=== PATIENT | female | born 1980 | race Caucasian/White ===

== ENCOUNTER 2017-04-09 19:09 | Emergency (ER) | payer OTHER ==
[~2017-04-09] VITALS: Ht 172.7 cm; Wt 79.5 kg
[~2017-04-09 19:09] MED LIST: ADDERALL XR 2525 MG PO; ADDERALL XR 3030 MG PO; ALBUTEROL SULF8.5 GM IH; AMBIEN5 MG PO; ATROVENT H200 INHALA IH; BEDSIDECOMMODE; BENADRYL50 MG PO; BENTYL10 MG PO; CIPRO500 MG PO; FLEXERIL10 MG PO; FLOVENT 22120 INHALA IH; KEFLEX500 MG PO; LEVOFLOXACIN750 MG PO; MOTRIN800 MG PO; NAPROSYN500 MG; NAPROSYN500 MG PO; NAPROXEN500 MG PO; NICOTINE PATCH1 EAC1 TD; OXCARBAZEPINE300 MG PO; OXYCODONE HCL5 MG PO; OXYCODONE-APAP1 EACH PO; OXYCONTIN15 MG PO; PERCOCET 5/31 TABLET PO; PREDNISONE20 MG PO; PROAIR HFA8.5 GM IH; PYRIDIUM100 MG PO; PYRIDIUM200 MG PO; REQUIP0.5 MG PO; SINGULAIR10 MG PO; TRAMADOL HCL50 MG; TRAMADOL HCL50 MG PO; TRAZODONE HCL50 MG PO; VALIUM5 MG PO; VENTOLIN HFA18 GM; WHEELCHAIR1 EACH MC; ZOFRAN ODT4 MG PO; ZOLPIDEM TARTRAT5 MG PO
[2017-04-09 20:23] LABS: HEMATOCRIT 39.1 % (36.0-46.0); MCH 29.3 PG (29.0-34.0); MCHC 32.7 G/DL (30.0-36.0); MCV 89.5 FL (83-99); MEAN PLAT.VOLUME 10.6 uM^3 (9.5-12.4); PLATELET COUNT 300 K/uL (156-360); RBC DIS.WIDTH-SD 42.5 % (39-53); RED BLOOD COUNT 4.37 M/uL (3.80-5.20); WHITE BLOOD COUNT 6.8 K/uL (4.1-10.2)
[2017-04-09 20:38] LABS: CHLORIDE 106 mEq/L (99-109); POTASSIUM 3.4 mEq/L (3.7-5.4)
[2017-04-09 20:39] LABS: SODIUM 142 mEq/L (136-147)
[2017-04-09 20:41] LABS: GLUCOSE 90 mg/dL (70-99)
[2017-04-09 20:42] LABS: ANION GAP 8 MEQ/L (2-14)
[2017-04-09 20:43] LABS: ADD MIUA? NO; BILIRUBIN NEGATIVE; BLOOD NEGATIVE; COLOR STRAW ((YELLOW)); GLUCOSE (STRIP) NEGATIVE; KETONES NEGATIVE; LEUKOCYTES NEGATIVE; NITRITE NEGATIVE; PROTEIN (STRIP) NEGATIVE; SPECIFIC GRAVITY 1.004 (1.000-1.030); UCUL ADDED? NO; UROBILINOGEN 0.2 MG/DL (0.2-1.0)
[2017-04-09 20:43] LABS: TOTAL BILIRUBIN 0.6 mg/dL (0.0-1.0)
[2017-04-09 20:44] LABS: ALKALINE PHOSPHATASE 71 IU/L (3-129); GFR ESTIMATE (CALCULATED) > 59 mL/min/
[2017-04-09 20:46] LABS: UREA NITROGEN (BUN) 5 mg/dL (9-23)
[2017-04-09 20:48] LABS: LIPASE 33 U/L (1.0-51.0)
[2017-04-09 20:54] LABS: QUANTITATIVE HCG < 4.0 MIU/ML
[2017-04-10] MEDS ORDERED: MOTRIN800 MG PO (00:22)
[2017-04-10] MEDS ORDERED: ZOFRAN4 MG PO (00:22)
[2017-04-10 01:17] VITALS: BP 123/66
== END 2017-04-10 01:27 | disposition home or self-care (01) ==
LOC: EME 19:09
DX: R11.2 Nausea with vomiting, unspecified (principal); R10.9 Unspecified abdominal pain; J44.9 Chronic obstructive pulmonary disease, unspecified; F17.200 Nicotine dependence, unspecified, uncomplicated
CPT/HCPCS: 76856; 80053; 81003; 83690; 84702; 85027; 99281; 99285; J1885; J2405; J7030

== ENCOUNTER 2018-03-10 11:28 | Emergency (ER) | payer OTHER ==
[~2018-03-10] VITALS: Ht 172.7 cm; Wt 88.0 kg
[~2018-03-10 11:28] MED LIST changes: +ZOFRAN4 MG PO
[2018-03-10 11:34] VITALS: BP 133/84
[2018-03-10 12:09] LABS: HEMATOCRIT 38.1 % (36.0-46.0); HEMOGLOBIN 12.6 G/DL (11.9-15.5); MCH 30.7 PG (29.0-34.0); MCHC 33.1 G/DL (30.0-36.0); MCV 92.7 FL (83-99); RBC DIS.WIDTH-CV 13.2 % (11.8-14.6); RBC DIS.WIDTH-SD 45.1 % (39-53); RED BLOOD COUNT 4.11 M/uL (3.80-5.20); WHITE BLOOD COUNT 6.6 K/uL (4.1-10.2)
[2018-03-10 12:25] LABS: CHLORIDE 106 mEq/L (99-109); POTASSIUM 4.5 mEq/L (3.7-5.4); SODIUM 138 mEq/L (136-147)
[2018-03-10 12:27] LABS: GLUCOSE 88 mg/dL (70-99)
[2018-03-10 12:31] LABS: CREATININE 0.7 mg/dL (0.6-1.3); GFR ESTIMATE (CALCULATED) > 59 mL/min/
[2018-03-10 12:32] LABS: UREA NITROGEN (BUN) 6 mg/dL (9-23)
[2018-03-10 12:34] LABS: TROP-I INTERPRETATION NEGATIVE; TROPONIN-I < 0.01 ng/mL (0.0-0.30)
[2018-03-10 12:51] LABS: PLAT.SUFFICIENCY ADEQUATE; PLATELET COUNT 253 K/uL (156-360)
[2018-03-10] MEDS ORDERED: VALTREX1000 MG PO (13:15)
== END 2018-03-10 13:41 | disposition home or self-care (01) ==
LOC: EME 11:28 → RME 11:28
DX: B02.9 Zoster without complications (principal); R07.89 Other chest pain; F41.9 Anxiety disorder, unspecified; G89.29 Other chronic pain; F17.200 Nicotine dependence, unspecified, uncomplicated; Z88.5 Allergy status to narcotic agent; Z88.0 Allergy status to penicillin
CPT/HCPCS: 71046; 80048; 84484; 85027; 93005; 99281; 99284

== ENCOUNTER 2018-06-15 21:50 | Emergency (ER) | payer OTHER ==
[~2018-06-15] VITALS: Ht 172.7 cm; Wt 85.2 kg
[~2018-06-15 21:50] MED LIST changes: +VALTREX1000 MG PO
[2018-06-15 22:37] LABS: HEMATOCRIT 33.3 % (36.0-46.0); HEMOGLOBIN 10.8 G/DL (11.9-15.5); MCH 29.2 PG (29.0-34.0); MCHC 32.4 G/DL (30.0-36.0); RBC DIS.WIDTH-CV 12.9 % (11.8-14.6); RBC DIS.WIDTH-SD 42.5 % (39-53); WHITE BLOOD COUNT 7.8 K/uL (4.1-10.2)
[2018-06-15 22:39] LABS: D-DIMER ELISA < 150.00 ng/mLDDU (<230)
[2018-06-15 22:40] LABS: CHLORIDE 105 mEq/L (99-109); POTASSIUM 4.1 mEq/L (3.7-5.4); SODIUM 138 mEq/L (136-147)
[2018-06-15 22:42] LABS: GLUCOSE 100 mg/dL (70-99)
[2018-06-15 22:46] LABS: CREATININE 0.7 mg/dL (0.6-1.3); GFR ESTIMATE (CALCULATED) > 59 mL/min/
[2018-06-15 22:47] LABS: UREA NITROGEN (BUN) 7 mg/dL (9-23)
[2018-06-15 22:54] LABS: TROP-I INTERPRETATION NEGATIVE; TROPONIN-I < 0.01 ng/mL (0.0-0.30)
[2018-06-15] MEDS ORDERED: FLEXERIL10 MG PO (23:22)
[2018-06-15] MEDS ORDERED: PREDNISONE20 MG PO (23:22)
[2018-06-15] MEDS ORDERED: NAPROSYN500 MG PO (23:22)
[2018-06-15 23:56] VITALS: BP 121/90
[2018-06-16 00:04] LABS: PLAT.SUFFICIENCY ADEQUATE; PLATELET COUNT 264 K/uL (156-360)
== END 2018-06-15 23:59 | disposition home or self-care (01) ==
LOC: EME 21:50
PROVIDERS: Emergency Medicine
DX: R07.9 Chest pain, unspecified (principal); S29.011A Strain of muscle and tendon of front wall of thorax, initial encounter; Z86.19 Personal history of other infectious and parasitic diseases; F41.9 Anxiety disorder, unspecified; G89.29 Other chronic pain; F17.200 Nicotine dependence, unspecified, uncomplicated; G43.909 Migraine, unspecified, not intractable, without status migrainosus; Z88.5 Allergy status to narcotic agent; Z88.0 Allergy status to penicillin
CPT/HCPCS: 71046; 80048; 84484; 85027; 85379; 93005; 99281; 99284; J7512